=== PATIENT | female | born 1965 | race Caucasian/White ===

== ENCOUNTER 2021-04-25 15:40 | Emergency (ER) | payer BC, SELFPAY ==
[2021-04-25 15:45] VITALS: BP 115/54; PULSE 68; RESP 14; TEMP 36.8; O2SAT 94
--- NOTE | 2021-04-25 16:40 | ED.GENADUL_ITS ---
Discharge Plan Disposition Patient Disposition: HOME Condition: Good Discharge Details Clinical Impression: Encounter for removal of sutures Primary Care Provider: Unknown,Unknown ED Provider: Javid Figueroa Home Meds and New Rx's Prescriptions: Continued escitalopram oxalate 10 mg Tablet 10 mg PO DAILY 0RF Discharge Instructions Instructions: Stitches Removal (ED) Additional Instructions: Return for any further concerns or signs of infection Discharge Data Discharge Date/Time-TO BE ENTERED AT DEPARTURE: 04/25/21 16:51 Medical Decision Making Patient presenting to the emergency department for chief complaint of suture removal. Patient reports little more than 2 weeks ago she had basal cell carcinoma removed from her left posterior shoulder and was waiting to get sutures out next week but contacted surgeon whom stated if they were pulling and irritating that she could have them removed sooner. Patient denies any fever chills, drainage from the site, or other symptoms. 8 simple interrupted sutures were removed without complication. Did have to instill 1 cc of 1% lidocaine due to discomfort to some of the deeper sutures. Patient tolerated procedure well and return in follow-up precautions were discussed. Medical Records Medical records narrative: 8 sutures removed HPI General Mode of arrival: ambulatory . Date/Time Provider Initiated Documentation: 04/25/21 15:51 . Limitations to Documentation: no limitations . Information obtained by: patient . History of Present Illness 56 year old F presents to the emergency department with the chief complaint of Suture removal, with intensity rated at 2. Quality is described as other (pulling), and is localized to the back and left. Patient reports no radiation. Patient started experiencing this week(s) (2-3) and it has been constant. improves with No relieving factors improve symptom(s), No exacerbating factors reported . Patient notes no other symptoms.. Patient did receive the following treatments prior to arrival, other (Aquaphor) Related Data Home Medications Medication Instructions Recorded Confirmed escitalopram oxalate 10 mg tablet 10 mg PO DAILY 04/25/21 04/25/21 Allergies Allergy/AdvReac Type Severity Reaction Status Date / Time No Known Allergies Allergy Unverified 04/25/21 15:48 General Stated Complaint: SutureRem RACHELL: 5 Review of Systems Constitutional Constitutional: Denies chills and Denies fever(s) Integumentary/Breasts Skin/Breast: Reports as per HPI, Denies rash and Denies skin swelling PFSH All Active Problems Encounter for removal of sutures (Acute) Social History Smoking/Tobacco Use Status: Never Smoking risk assessment performed?: Yes Alcohol Intake: current Alcohol Intake frequency: a few times a month Drug use: Never Substance use type: does not use Do you feel safe at home: Yes Do you feel safe in your relationship?: Yes Exam Const General: cooperative, comfortable and no acute distress Orientation: alert, awake and oriented x3 Resp Effort & Inspection: normal respiratory effort and able to speak in complete sentences Skin Rashes: no rashes Trauma: laceration (healing well laceration without erythema, purulence, or dehiscence.) Neuro General: patient alert, patient awake, gait normal and moves all extremities Course Vital Signs Vital signs: Vital Signs Temperature 36.8 C 04/25/21 15:45 Pulse 68 04/25/21 15:45 Respiratory Rate 14 04/25/21 15:45 Blood Pressure 115/54 L 04/25/21 15:45 Pulse Oximetry 94 04/25/21 15:45 Temperature 36.8 C 04/25/21 15:45 Temperature Source Temporal Artery Scan 04/25/21 15:45 Pulse 68 04/25/21 15:45 Respiratory Rate 14 04/25/21 15:45 Respiratory Effort Non-Labored 04/25/21 15:49 Blood Pressure 115/54 L 04/25/21 15:45 Blood Pressure Position Sitting 04/25/21 15:45 Pulse Oximetry 94 04/25/21 15:45 Oxygen Delivery Method Room Air 04/25/21 15:45 Oxygen Flow Rate 0 04/25/21 15:45 Pain Level 6 04/25/21 15:45 PAWSS Have you Been Recently Intoxicated or Drunk Within the Last 30 days?: No Have you Ever Experienced Previous Episodes of Alcohol Withdrawal?: No Have you ever Experienced Withdrawal Seizures?: No Have you ever Experienced Delirium Tremens(DT)s?: No Have you ever undergone Alcohol Rehabilitation Treatment (i.e, inpt ot outpatient treatment programs)?: No Have you ever Experienced Blackouts?: No Have you ever Combined Alcohol with other Downers within the last 90 days?: No Have you ever Combined Alcohol with any other Substance of Abuse during the last 90 days?: No Positive Blood Alcohol level on Presentation? [PCS.BAL]: No Evidence of Increased Autonomic Activity (i.e. HR>120, tremor, sweating, agitation, nausea)?: No Result: 0
== END 2021-04-25 16:51 | disposition home or self-care (01) ==
LOC: ER 16:51
PROVIDERS: Emergency Provider Nurse Practitioner Family
DX: C44.619 Basal cell carcinoma of skin of left upper limb, including shoulder (principal); Z48.02 Encounter for removal of sutures
CPT/HCPCS: 99282; 99281